=== PATIENT | female | born 1960 | race African-American/Black ===

== ENCOUNTER 2019-06-11 18:19 | Emergency (ER) | payer MEDICAID ==
[~2019-06-11] VITALS: Ht 165.1 cm; Wt 81.0 kg
[2019-06-11] MEDS ORDERED: LOSARTAN POTASSIUM 100 MG TABLET PO ONE (23:30)
[2019-06-11] MEDS ORDERED: HYDROCHLOROTHIAZIDE 25MG TABLET PO ONE (23:30)
[2019-06-11] MEDS ORDERED: AZITHROMYCIN 500 MG TABLET PO ONE (23:45)
[2019-06-11] MEDS ORDERED: FLUCONAZOLE 100MG TABLET PO ONE (23:45)
[2019-06-12 00:15] VITALS: BP 128/80
== END 2019-06-12 00:40 | disposition home or self-care (01) ==
LOC: ER 18:19
DX: J18.9 Pneumonia, unspecified organism (principal); I10 Essential (primary) hypertension; R05 Cough; N89.8 Other specified noninflammatory disorders of vagina; D64.9 Anemia, unspecified; Z98.890 Other specified postprocedural states; Z88.8 Allergy status to other drugs, medicaments and biological substances
CPT/HCPCS: 71045; 99284

== ENCOUNTER 2019-07-10 19:21 | Emergency (ER) | payer MEDICAID ==
[~2019-07-10 19:21] MED LIST: FERR325T6 MT; LINA145C MT
== END 2019-07-10 21:42 | disposition left against medical advice (07) ==
LOC: ER 19:21
DX: R05 Cough (principal); Z53.21 Procedure and treatment not carried out due to patient leaving prior to being seen by health care provider